=== PATIENT | male | born 1950 | race Caucasian/White ===

== ENCOUNTER → 2016-07-09 | Outpatient (CLI) | payer OTHER ==
[~2016-07-09] MED LIST: ABIR250T PO; AMIO200T PO; AMLO10TA2 PO; AMLO5TAB2 PO; APIX5TAB PO; ATOR20TA9 PO; ATOR40TA78 PO; BUSP10TA PO; DARB100V SQ; DRON400T PO; ENOX60SY4 SQ; FERR325T20 PO; LEUP22.52 IM; LOSA1TAB18 PO; METO-93 PO; METO25TA35 PO; OMEP-110 PO; OMEP20CA9 PO; OMNIPAQUE 350 MG/ML, 100ML BOTTLE ONE; OXYC5TAB3 PO; PARO40TA3 PO; POLY17PO5 PO; POTA10TA90 PO; PRED10TA PO; WARF5TAB7 PO
== END | disposition home or self-care (01) ==
LOC: CFH 09:20
PROVIDERS: ATTEND Internal Medicine Hematology & Oncology
DX: C61 Malignant neoplasm of prostate (principal); K76.6 Portal hypertension; K80.20 Calculus of gallbladder without cholecystitis without obstruction; D50.9 Iron deficiency anemia, unspecified; M89.8X8 Other specified disorders of bone, other site
CPT/HCPCS: 71260; 74177; 82565; Q9967

== ENCOUNTER 2017-03-29 03:54 | Emergency (ER) | payer MEDICARE ==
[~2017-03-29] VITALS: Ht 177.8 cm; Wt 94.0 kg
[~2017-03-29 03:54] MED LIST changes: +FERR325T18 PO; -FERR325T20 PO; -LOSA1TAB18 PO; +LOSA1TAB25 PO; -OMNIPAQUE 350 MG/ML, 100ML BOTTLE ONE; +POTA10TA6 PO; -POTA10TA90 PO
[2017-03-29 04:07] VITALS: BP 172/97
[2017-03-29] MEDS ORDERED: ACETAMINOPHEN 500 MG TABLET PO ONE (05:00)
[2017-03-29 05:27] LABS: HEMATOCRIT 36.7 % (39.2-51.8); HEMOGLOBIN 12.8 g/dL (13.7-18.0); WHITE BLOOD COUNT 6.5 x10^3/uL (3.4-10)
[2017-03-29 05:28] LABS: BLOOD UREA NITROGEN 29 mg/dL (7-18)
[2017-03-29] MEDS ORDERED: ACETAMINOPHEN 500 MG TABLET ONE (05:41)
== END 2017-03-29 06:17 | disposition home or self-care (01) ==
LOC: ED 04:19
DX: S39.012A Strain of muscle, fascia and tendon of lower back, initial encounter (principal); I10 Essential (primary) hypertension; Z85.46 Personal history of malignant neoplasm of prostate; X58.XXXA Exposure to other specified factors, initial encounter; Y93.89 Activity, other specified; Y92.89 Other specified places as the place of occurrence of the external cause; Y99.9 Unspecified external cause status
CPT/HCPCS: 36415; 72110; 80048; 81003; 82040; 85025; 99285

== ENCOUNTER 2017-08-18 11:05 | Inpatient (IN) | payer MEDICARE ==
[~2017-08-18] VITALS: Ht 152.4 cm; Wt 96.0 kg
[~2017-08-18 11:05] MED LIST changes: +WARF-36 PO; -WARF5TAB7 PO
[2017-08-18] MEDS ORDERED: CHLO25TA PO (11:59)
[2017-08-18] MEDS ORDERED: MULT1CAP19 PO (11:59)
[2017-08-18] MEDS ORDERED: AMLO5TAB2 PO (11:59)
[2017-08-18] MEDS ORDERED: ATOR40TA PO (11:59)
[2017-08-18] MEDS ORDERED: APIX5TAB PO (11:59)
[2017-08-18] MEDS ORDERED: SUVO20TA PO (11:59)
[2017-08-18] MEDS ORDERED: OMEP-110 PO (11:59)
[2017-08-18] MEDS ORDERED: METO-95 PO (11:59)
[2017-08-18] MEDS ORDERED: LOSA100T6 PO (11:59)
[2017-08-18 12:40] LABS: BASOPHILS # (AUTO) 0.08 x10^3/uL (0-0.1); BASOPHILS % (AUTO) 1 % (0-1); EOSINOPHILS # (AUTO) 0.26 x10^3/uL (0-0.4); EOSINOPHILS % (AUTO) 4 % (1-7); LYMPHOCYTES # (AUTO) 0.82 x10^3/uL (1-3.4); LYMPHOCYTES % (AUTO) 11 % (22-44); MD NO; MEAN CORPUSCULAR HEMOGLOBIN 26.3 pg (27.5-34.5); MEAN CORPUSCULAR HGB CONC 32.7 g/dL (33.2-36.2); MEAN CORPUSCULAR VOLUME 80.4 fL (81-97); MEAN PLATELET VOLUME 8.6 fL (7.4-10.4); MONOCYTES % (AUTO) 7 % (2-9); NEUTROPHILS # (AUTO) 5.76 x10^3/uL (1.8-6.8); NEUTROPHILS % (AUTO) 78 % (42-75); PLATELET COUNT 222 x10^3/uL (130-400); RED BLOOD COUNT 3.88 x10^6/uL (4.38-5.82); RED CELL DISTRIBUTION WIDTH 18.6 % (9.4-14.8)
[2017-08-18 13:09] LABS: ALANINE AMINOTRANSFERASE 20 U/L (12-78); ALBUMIN 3.9 g/dL (3.4-5.0); ANION GAP 11 mmol/L (5-15); CALCIUM 9.5 mg/dL (8.5-10.1); CHLORIDE 103 mmol/L (98-107)
[2017-08-18 13:14] LABS: ALKALINE PHOSPHATASE 130 U/L (45-117); BILIRUBIN,TOTAL 0.5 mg/dL (0.2-1.0); CREATININE 1.19 mg/dL (0.7-1.3); TOTAL PROTEIN 8.1 g/dL (6.4-8.2); TROPONIN I < 0.015 ng/mL (0.000-0.045)
[2017-08-18] MEDS ORDERED: OXYcodone/APAP 10/325MG TABLET ONE (14:21)
[2017-08-18] MEDS ORDERED: OXYcodone/APAP 10/325MG TABLET PO ONE (14:30)
[2017-08-18] MEDS ORDERED: POLYETHYLENE GLYCOL 17 GM PACKET PO PRN (15:00)
[2017-08-18] MEDS ORDERED: LABETALOL 5MG/ML, 20ML IVPush PRN (15:00)
[2017-08-18] MEDS ORDERED: ONDANSETRON 2MG/ML, 2ML IVPush PRN (15:00)
[2017-08-18] MEDS ORDERED: ENOXAPARIN 40 MG/0.4 ML SQ SCH (15:00)
[2017-08-18] MEDS ORDERED: GADOBUTROL 10 MMOL/10 ML PFS ONE (15:49)
[2017-08-18 16:04] LABS: FREE T4 (FREE THYROXINE) 1.25 ng/dL (0.76-1.46)
[2017-08-18] MEDS ORDERED: ONDANSETRON 4 MG TABLET ONE (16:26)
[2017-08-18 16:28] VITALS: BP 139/89
[2017-08-18] MEDS: ONDANSETRON ODT 4 MG PO PRN ×2 (16:44→21:40)
[2017-08-18] MEDS: D5%-0.45% NACL 1,000 ML IV SCH (16:45)
[2017-08-18] MEDS ORDERED: ACETAMINOPHEN 325 MG TABLET PO PRN (17:30)
[2017-08-18 20:15] VITALS: BP 133/83
[2017-08-18] MEDS: APIXABAN 5 MG TABLET PO SCH (20:34)
[2017-08-18] MEDS: MORPHINE SULFATE 4 MG/ML, 1ML IVPush PRN (20:34)
[2017-08-18] MEDS: ATORVASTATIN 40 MG TABLET PO SCH (20:34)
[2017-08-18] MEDS: FAMOTIDINE 20 MG/2 ML IVPush SCH (20:34)
[2017-08-19] MEDS: MORPHINE SULFATE 4 MG/ML, 1ML IVPush PRN ×2 (01:09→07:45)
[2017-08-19] MEDS: D5%-0.45% NACL 1,000 ML IV SCH ×3 (02:11→21:23)
[2017-08-19] MEDS: ONDANSETRON ODT 4 MG PO PRN ×3 (02:11→11:56)
[2017-08-19 02:30] VITALS: BP 106/65
[2017-08-19 04:32] LABS: BASOPHILS # (AUTO) 0.02 x10^3/uL (0-0.1); BASOPHILS % (AUTO) 0 % (0-1); EOSINOPHILS # (AUTO) 0.19 x10^3/uL (0-0.4); EOSINOPHILS % (AUTO) 2 % (1-7); LYMPHOCYTES # (AUTO) 0.37 x10^3/uL (1-3.4); LYMPHOCYTES % (AUTO) 5 % (22-44); MD NO; MEAN CORPUSCULAR HEMOGLOBIN 26.3 pg (27.5-34.5); MEAN CORPUSCULAR HGB CONC 32.4 g/dL (33.2-36.2); MEAN CORPUSCULAR VOLUME 81.2 fL (81-97); MEAN PLATELET VOLUME 9.1 fL (7.4-10.4); MONOCYTES # (AUTO) 0.67 x10^3/uL (0.2-0.8); MONOCYTES % (AUTO) 8 % (2-9); NEUTROPHILS # (AUTO) 6.99 x10^3/uL (1.8-6.8); NEUTROPHILS % (AUTO) 85 % (42-75); PLATELET COUNT 189 x10^3/uL (130-400); RED BLOOD COUNT 3.46 x10^6/uL (4.38-5.82)
[2017-08-19 04:44] LABS: ALANINE AMINOTRANSFERASE 18 U/L (12-78); ALBUMIN 3.3 g/dL (3.4-5.0); ANION GAP 9 mmol/L (5-15); CALCIUM 8.9 mg/dL (8.5-10.1); CHLORIDE 102 mmol/L (98-107); CREATININE 1.05 mg/dL (0.7-1.3)
[2017-08-19 04:54] LABS: ALKALINE PHOSPHATASE 114 U/L (45-117); BILIRUBIN,TOTAL 0.4 mg/dL (0.2-1.0); TOTAL PROTEIN 6.9 g/dL (6.4-8.2)
[2017-08-19] MEDS: FAMOTIDINE 20 MG/2 ML IVPush SCH (07:44)
[2017-08-19 08:14] VITALS: BP 114/73
[2017-08-19] MEDS: SUVOREXANT PO SCH (09:17)
[2017-08-19] MEDS: AMLODIPINE 5 MG TABLET PO SCH (09:17)
[2017-08-19] MEDS: PROMETHAZINE 25 MG/ML, 1ML IM PRN ×2 (09:17→16:59)
[2017-08-19] MEDS: LOSARTAN 50MG TABLET PO SCH (09:17)
[2017-08-19] MEDS: METOPROLOL SUCCINATE 100 MG TAB.ER.24H PO SCH (09:18)
[2017-08-19] MEDS: OMEPRAZOLE 20 MG CAPSULE.DR PO SCH (09:18)
[2017-08-19] MEDS: MULTIVITAMIN 1 TABLET PO SCH (10:39)
[2017-08-19] MEDS: APIXABAN 5 MG TABLET PO SCH ×2 (10:39→19:37)
[2017-08-19] MEDS: SENNA/DOCUSATE TABLET PO SCH (10:39)
[2017-08-19] MEDS: HYDROmorphone 2 MG/ML, 1ML IVPush PRN ×2 (13:36→19:37)
[2017-08-19 14:24] VITALS: BP 130/88
[2017-08-19 18:38] VITALS: BP 128/82
[2017-08-19] MEDS: ATORVASTATIN 40 MG TABLET PO SCH (21:00)
[2017-08-20] MEDS: HYDROmorphone 2 MG/ML, 1ML IVPush PRN ×6 (00:02→22:17)
[2017-08-20 02:36] VITALS: BP 145/79
[2017-08-20 04:37] LABS: BASOPHILS # (AUTO) 0.02 x10^3/uL (0-0.1); BASOPHILS % (AUTO) 0 % (0-1); EOSINOPHILS # (AUTO) 0.19 x10^3/uL (0-0.4); EOSINOPHILS % (AUTO) 3 % (1-7); LYMPHOCYTES # (AUTO) 0.71 x10^3/uL (1-3.4); LYMPHOCYTES % (AUTO) 10 % (22-44); MD NO; MEAN CORPUSCULAR HEMOGLOBIN 26.9 pg (27.5-34.5); MEAN CORPUSCULAR HGB CONC 33.2 g/dL (33.2-36.2); MEAN PLATELET VOLUME 9.2 fL (7.4-10.4); MONOCYTES # (AUTO) 0.56 x10^3/uL (0.2-0.8); MONOCYTES % (AUTO) 8 % (2-9); NEUTROPHILS # (AUTO) 5.41 x10^3/uL (1.8-6.8); NEUTROPHILS % (AUTO) 79 % (42-75); PLATELET COUNT 178 x10^3/uL (130-400); RED BLOOD COUNT 3.39 x10^6/uL (4.38-5.82); RED CELL DISTRIBUTION WIDTH 18.9 % (9.4-14.8)
[2017-08-20 04:46] LABS: ALBUMIN 3.1 g/dL (3.4-5.0); ANION GAP 10 mmol/L (5-15); CHLORIDE 96 mmol/L (98-107); CREATININE 0.92 mg/dL (0.7-1.3)
[2017-08-20] MEDS: D5%-0.45% NACL 1,000 ML IV SCH ×2 (06:35→16:03)
[2017-08-20 07:27] VITALS: BP 151/76
[2017-08-20] MEDS: PROMETHAZINE 25 MG/ML, 1ML IM PRN (07:45)
[2017-08-20] MEDS: SUVOREXANT PO SCH (07:46)
[2017-08-20] MEDS: APIXABAN 5 MG TABLET PO SCH ×2 (07:46→20:17)
[2017-08-20] MEDS: OMEPRAZOLE 20 MG CAPSULE.DR PO SCH (07:46)
[2017-08-20] MEDS: AMLODIPINE 5 MG TABLET PO SCH (07:46)
[2017-08-20] MEDS: LOSARTAN 50MG TABLET PO SCH (07:46)
[2017-08-20] MEDS: MULTIVITAMIN 1 TABLET PO SCH (07:46)
[2017-08-20] MEDS: METOPROLOL SUCCINATE 100 MG TAB.ER.24H PO SCH (07:46)
[2017-08-20] MEDS: SENNA/DOCUSATE TABLET PO SCH (07:47)
[2017-08-20 13:17] VITALS: BP 128/77
[2017-08-20 18:39] VITALS: BP 122/79
[2017-08-20] MEDS: ATORVASTATIN 40 MG TABLET PO SCH (20:17)
[2017-08-21 00:33] VITALS: BP 154/89
[2017-08-21] MEDS: HYDROmorphone 2 MG/ML, 1ML IVPush PRN ×3 (02:20→10:24)
[2017-08-21] MEDS: D5%-0.45% NACL 1,000 ML IV SCH ×2 (02:20→12:27)
[2017-08-21 05:47] LABS: BASOPHILS # (AUTO) 0.02 x10^3/uL (0-0.1); BASOPHILS % (AUTO) 0 % (0-1); EOSINOPHILS # (AUTO) 0.18 x10^3/uL (0-0.4); EOSINOPHILS % (AUTO) 2 % (1-7); LYMPHOCYTES # (AUTO) 0.71 x10^3/uL (1-3.4); LYMPHOCYTES % (AUTO) 8 % (22-44); MD NO; MEAN CORPUSCULAR HEMOGLOBIN 26.5 pg (27.5-34.5); MEAN CORPUSCULAR HGB CONC 33.3 g/dL (33.2-36.2); MEAN CORPUSCULAR VOLUME 79.6 fL (81-97); MEAN PLATELET VOLUME 9.6 fL (7.4-10.4); MONOCYTES # (AUTO) 0.69 x10^3/uL (0.2-0.8); MONOCYTES % (AUTO) 8 % (2-9); NEUTROPHILS # (AUTO) 6.82 x10^3/uL (1.8-6.8); NEUTROPHILS % (AUTO) 81 % (42-75); PLATELET COUNT 158 x10^3/uL (130-400); RED BLOOD COUNT 3.39 x10^6/uL (4.38-5.82); RED CELL DISTRIBUTION WIDTH 18.9 % (9.4-14.8)
[2017-08-21 05:49] LABS: ALBUMIN 2.9 g/dL (3.4-5.0); ANION GAP 11 mmol/L (5-15); CALCIUM 8.8 mg/dL (8.5-10.1); CHLORIDE 94 mmol/L (98-107)
[2017-08-21 08:02] VITALS: BP 157/94
[2017-08-21] MEDS: LOSARTAN 50MG TABLET PO SCH (08:53)
[2017-08-21] MEDS: MULTIVITAMIN 1 TABLET PO SCH (08:53)
[2017-08-21] MEDS: SENNA/DOCUSATE TABLET PO SCH (08:53)
[2017-08-21] MEDS: APIXABAN 5 MG TABLET PO SCH (08:53)
[2017-08-21] MEDS: METOPROLOL SUCCINATE 100 MG TAB.ER.24H PO SCH (08:53)
[2017-08-21] MEDS: OMEPRAZOLE 20 MG CAPSULE.DR PO SCH (08:54)
[2017-08-21] MEDS: AMLODIPINE 5 MG TABLET PO SCH (08:54)
[2017-08-21] MEDS: SUVOREXANT PO SCH (08:54)
[2017-08-21 12:36] VITALS: BP 149/88
[2017-08-21] MEDS ORDERED: HYDROmorphone 2MG TABLET PO PRN (13:30)
[2017-08-21] MEDS ORDERED: FENTANYL 25 MCG PATCH TD SCH (13:30)
[2017-08-21] MEDS ORDERED: DEXAMETHASONE 4 MG TABLET PO SCH ×2 (17:00→21:00)
[2017-08-21] MEDS ORDERED: DEXA4TAB66 PO (17:56)
[2017-08-21] MEDS ORDERED: HYDR2TAB40 PO (17:56)
[2017-08-21] MEDS ORDERED: TRAM50TA2 PO (17:56)
[2017-08-24] MEDS ORDERED: FENTANYL REMOVE PATCH NOTE XX SCH (13:30)
== END 2017-08-21 19:20 | disposition home or self-care (01) | DRG 543 ==
LOC: 3NW 14:10 → ED 16:26
PROVIDERS: ADMIT Hospitalist; ATTEND Hospitalist
DX: C79.51 Secondary malignant neoplasm of bone (principal); D68.69 Other thrombophilia; I48.2 Chronic atrial fibrillation; R29.810 Facial weakness; I10 Essential (primary) hypertension; D50.9 Iron deficiency anemia, unspecified; R47.1 Dysarthria and anarthria; K59.00 Constipation, unspecified; R73.9 Hyperglycemia, unspecified; R74.8 Abnormal levels of other serum enzymes; K14.8 Other diseases of tongue; E78.5 Hyperlipidemia, unspecified; F32.9 Major depressive disorder, single episode, unspecified; Z82.49 Family history of ischemic heart disease and other diseases of the circulatory system; Z90.79 Acquired absence of other genital organ(s); Z92.3 Personal history of irradiation; Z80.0 Family history of malignant neoplasm of digestive organs; Z85.46 Personal history of malignant neoplasm of prostate; Z79.01 Long term (current) use of anticoagulants; Z90.89 Acquired absence of other organs
CPT/HCPCS: 36415; 70450; 70551; 70552; 71045; 72156; 74018; 78306; 80048; 80053; 82040; 82728; 83540; 83550; 83735; 83880; 84100; 84439; 84443; 84484; 85025; 93005; 99285; A9585; G0103; J1170; J2550; Q0162; A9503; C9898; S0028

== ENCOUNTER → 2017-08-22 | Outpatient (CLI) | payer MEDICARE ==
[~2017-08-22] MED LIST changes: +ATOR40TA PO; +CHLO25TA PO; +DEXA4TAB66 PO; +HYDR2TAB40 PO; +LOSA100T6 PO; +METO-95 PO; +MULT1CAP19 PO; +SUVO20TA PO; +TRAM50TA2 PO
== END | disposition home or self-care (01) ==
LOC: ROC 10:02
PROVIDERS: ATTEND Radiology Radiation Oncology
DX: Z02.9 Encounter for administrative examinations, unspecified (principal)

== ENCOUNTER 2017-09-12 03:52 | Inpatient (IN) | payer MEDICARE ==
[~2017-09-12] VITALS: Ht 177.8 cm; Wt 86.3 kg
[2017-09-12] MEDS ORDERED: HYDROmorphone 2 MG/ML, 1ML IVPush PRN ×2 (04:30→08:00)
[2017-09-12] MEDS ORDERED: SODIUM CHLORIDE FLUSH 10ML SYR IVF ONE (04:30)
[2017-09-12] MEDS ORDERED: SODIUM CHLORIDE 0.9% 1,000ML IVBOLUS ONE ×3 (04:30→16:30)
[2017-09-12] MEDS ORDERED: HYDROmorphone 2 MG/ML, 1ML ONE (04:50)
[2017-09-12 05:22] LABS: MEAN CORPUSCULAR HEMOGLOBIN 26.4 pg (27.5-34.5); MEAN CORPUSCULAR HGB CONC 32.4 g/dL (33.2-36.2); MEAN CORPUSCULAR VOLUME 81.7 fL (81-97); MEAN PLATELET VOLUME 11.5 fL (7.4-10.4); PLATELET COUNT 118 x10^3/uL (130-400); RED BLOOD COUNT 4.84 x10^6/uL (4.38-5.82); RED CELL DISTRIBUTION WIDTH 20.4 % (9.4-14.8)
[2017-09-12 05:35] LABS: CHLORIDE 92 mmol/L (98-107)
[2017-09-12 05:42] LABS: ALANINE AMINOTRANSFERASE 20 U/L (12-78); ALKALINE PHOSPHATASE 133 U/L (45-117); ANION GAP 17 mmol/L (5-15); BILIRUBIN,TOTAL 1.1 mg/dL (0.2-1.0); CALCIUM 8.5 mg/dL (8.5-10.1); CREATININE 3.67 mg/dL (0.7-1.3); TOTAL PROTEIN 6.7 g/dL (6.4-8.2)
[2017-09-12 05:43] LABS: ACETONE, SERUM Large (80mg/dL) mg/dL (Negative)
[2017-09-12 06:00] LABS: BASOPHILS % (AUTO) 0 % (0-1); EOSINOPHILS % (AUTO) 0 % (1-7); LYMPHOCYTES # (AUTO) 0.08 x10^3/uL (1-3.4); LYMPHOCYTES % (AUTO) 1 % (22-44); MD SCAN; MONOCYTES % (AUTO) 1 % (2-9); NEUTROPHILS # (AUTO) 8.01 x10^3/uL (1.8-6.8); NEUTROPHILS % (AUTO) 98 % (42-75)
[2017-09-12] MEDS ORDERED: INSULIN REGULAR 100 UNITS/ML, 3ML VIAL IVPush ONE (06:00)
[2017-09-12] MEDS ORDERED: SODIUM CHLORIDE 0.9%, 500ML IVBOLUS ONE ×2 (06:00→08:00)
[2017-09-12] MEDS ORDERED: INSULIN REGULAR 100 UNITS/ML, 3ML VIAL ONE ×2 (06:02→06:03)
[2017-09-12] MEDS ORDERED: CALCIUM CHLORIDE 10%, 10ML SYR IVPush ONE (06:30)
[2017-09-12] MEDS ORDERED: SODIUM POLY SULFONATE UDC 15 GM/60 ML PO ONE (06:30)
[2017-09-12] MEDS ORDERED: CALCIUM CHLORIDE 10%, 10ML SYR ONE (07:02)
[2017-09-12] MEDS ORDERED: CALCIUM GLUCONATE 4.6 MEQ/10 ML ONE (07:02)
[2017-09-12] MEDS ORDERED: REGULAR INSULIN 62.5 UNITS in SODIUM CHLORIDE 0.9% 249.375 ML IV PRN (07:32)
[2017-09-12 07:48] LABS: MICROSCOPIC NOT IND
[2017-09-12] MEDS ORDERED: POLYETHYLENE GLYCOL 17 GM PACKET PO PRN (08:00)
[2017-09-12] MEDS ORDERED: LORazepam 2 MG/ML, 1ML IVPush PRN (08:00)
[2017-09-12] MEDS: SODIUM CHLORIDE 0.9% 1,000 ML IV SCH ×3 (08:15→20:58)
[2017-09-12 08:29] LABS: CULTURE INDICATED? NO
[2017-09-12] MEDS ORDERED: INSULIN LISPRO 100 UNITS/ML, PEN ONE (08:49)
[2017-09-12 08:53] LABS: THYROID STIMULATING HORMONE 0.185 mIU/L (0.358-3.740)
[2017-09-12] MEDS: SENNA/DOCUSATE TABLET PO SCH (09:00)
[2017-09-12] MEDS: INSULIN LISPRO 100 UNITS/ML, PEN SQ-INSULIN SCH ×4 (09:01→21:09)
[2017-09-12 10:05] LABS: HEMOGLOBIN A1C 11.5 % (4.2-6.3)
[2017-09-12] MEDS ORDERED: LIDOCAINE-MPF 1%, 2ML ONE (10:45)
[2017-09-12] MEDS ORDERED: LIDOCAINE GEL 2%, 5ML TP PRN (11:00)
[2017-09-12] MEDS: DEXAMETHASONE 4 MG/ML, 1ML IVPush SCH ×3 (11:27→23:19)
[2017-09-12] MEDS: INSULIN GLARGINE 100 UNITS/ML, PEN SQ-INSULIN SCH ×2 (11:27→21:10)
[2017-09-12 11:59] LABS: INTERNATIONAL NORMALIZED RATIO 1.09 (0.93-1.1); PROTHROMBIN TIME 11.2 Seconds (9.6-11.5)
[2017-09-12 12:02] LABS: ANION GAP 13 mmol/L (5-15); CALCIUM 8.6 mg/dL (8.5-10.1); CHLORIDE 107 mmol/L (98-107); CREATININE 3.22 mg/dL (0.7-1.3)
[2017-09-12 12:15] LABS: FREE T4 (FREE THYROXINE) 0.84 ng/dL (0.76-1.46)
[2017-09-12 12:21] VITALS: BP 101/56
[2017-09-12] MEDS ORDERED: DIAZEPAM 5 MG/ML, 10ML VIAL IV ONE (13:40)
[2017-09-12] MEDS ORDERED: DIAZEPAM 5 MG/ML, 2ML IV ONE (14:00)
[2017-09-12] MEDS ORDERED: LIDOCAINE 2%, 20ML ONE (14:12)
[2017-09-12] MEDS ORDERED: PROPOFOL 10 MG/ML, 100ML IV ONE (15:00)
[2017-09-12] MEDS ORDERED: ROCURONIUM 10MG/ML,5ML ONE (15:00)
[2017-09-12] MEDS ORDERED: MIDAZOLAM 1 MG/ML, 5ML ONE (15:00)
[2017-09-12] MEDS ORDERED: NOREPINEPHRINE 1 MG/ML, 4ML ONE (15:25)
[2017-09-12] MEDS ORDERED: PHARMACY MAY ADJ FOR RENAL FX MC SCH (15:30)
[2017-09-12] MEDS ORDERED: DEXTROSE 50%, 50ML SYRINGE IVPush PRN (15:30)
[2017-09-12] MEDS ORDERED: SENNA/DOCUSATE TABLET NG PRN (15:30)
[2017-09-12] MEDS ORDERED: GLUCAGON 1 MG IM PRN (15:30)
[2017-09-12] MEDS ORDERED: DEXTROSE 4 GM TAB.CHEW PO PRN (15:30)
[2017-09-12] MEDS ORDERED: FENTANYL PF 100 MCG/2ML IVPush PRN (15:30)
[2017-09-12] MEDS ORDERED: SENNOSIDES 8.8 MG/5 ML ORAL SOL NG PRN (15:30)
[2017-09-12] MEDS ORDERED: BISACODYL 10 MG SUPP PR PRN (15:30)
[2017-09-12] MEDS ORDERED: LIDOCAINE-MPF 1%, 2ML ENDO PRN (15:30)
[2017-09-12] MEDS ORDERED: LACTULOSE 20 GM/30 ML UDC NG PRN (15:30)
[2017-09-12] MEDS ORDERED: METOPROLOL 1 MG/ML, 5ML ONE (15:53)
[2017-09-12 16:11] LABS: ANION GAP 13 mmol/L (5-15); CALCIUM 9.5 mg/dL (8.5-10.1); CHLORIDE 112 mmol/L (98-107)
[2017-09-12] MEDS ORDERED: SODIUM CHLORIDE 0.9% 1,000 ML IV SCH (16:30)
[2017-09-12 16:34] LABS: CREATININE 3.13 mg/dL (0.7-1.3)
[2017-09-12 17:06] LABS: MICROSCOPIC AUTO
[2017-09-12 17:08] LABS: CULTURE INDICATED? NO
[2017-09-12] MEDS: NOREPINEPHRINE 4 MG in SODIUM CHLORIDE 0.9% 246 ML IV PRN ×2 (17:19→20:59)
[2017-09-12] MEDS: ALBUTEROL/IPRATROPIUM 2.5MG/0.5MG, 3 ML INLINE SCH ×2 (18:34→22:27)
[2017-09-12 20:39] LABS: ANION GAP 11 mmol/L (5-15); CALCIUM 9.1 mg/dL (8.5-10.1); CHLORIDE 116 mmol/L (98-107)
[2017-09-12] MEDS: PROPOFOL 100 ML IV PRN (21:01)
[2017-09-12] MEDS: SODIUM CHLORIDE FLUSH 10ML SYR IVF SCH (21:01)
[2017-09-12] MEDS: OXYcodone IR 5MG TABLET PO PRN (21:37)
[2017-09-13 00:43] LABS: ANION GAP 11 mmol/L (5-15); CALCIUM 8.9 mg/dL (8.5-10.1); CHLORIDE 119 mmol/L (98-107)
[2017-09-13] MEDS: NOREPINEPHRINE 4 MG in SODIUM CHLORIDE 0.9% 246 ML IV PRN ×2 (01:33→07:52)
[2017-09-13] MEDS: ALBUTEROL/IPRATROPIUM 2.5MG/0.5MG, 3 ML INLINE SCH ×3 (02:31→10:08)
[2017-09-13] MEDS: SODIUM CHLORIDE 0.9% 1,000 ML IV SCH ×3 (03:26→16:38)
[2017-09-13] MEDS: PROPOFOL 100 ML IV PRN ×2 (03:28→07:46)
[2017-09-13] MEDS: INSULIN LISPRO 100 UNITS/ML, PEN SQ-INSULIN SCH ×4 (03:29→21:14)
[2017-09-13 04:38] VITALS: BP 117/69
[2017-09-13 04:48] LABS: ALBUMIN 2.4 g/dL (3.4-5.0); ANION GAP 11 mmol/L (5-15); CALCIUM 8.7 mg/dL (8.5-10.1); CHLORIDE 119 mmol/L (98-107)
[2017-09-13 04:51] LABS: ALANINE AMINOTRANSFERASE 18 U/L (12-78); ALKALINE PHOSPHATASE 137 U/L (45-117); BILIRUBIN,TOTAL 0.7 mg/dL (0.2-1.0); CREATININE 2.04 mg/dL (0.7-1.3); MEAN CORPUSCULAR HEMOGLOBIN 26.6 pg (27.5-34.5); MEAN CORPUSCULAR VOLUME 80.8 fL (81-97); RED BLOOD COUNT 4.44 x10^6/uL (4.38-5.82); RED CELL DISTRIBUTION WIDTH 20.2 % (9.4-14.8); TOTAL PROTEIN 5.8 g/dL (6.4-8.2)
[2017-09-13] MEDS: DEXAMETHASONE 4 MG/ML, 1ML IVPush SCH ×4 (05:26→23:16)
[2017-09-13 06:54] LABS: MD YES
[2017-09-13 06:59] LABS: BAND#(MANUAL) 2.61 x10^3/uL; BANDS%(MANUAL) 45 % (0-7); LYMPH#(MANUAL) 0.06 x10^3/uL (1-3.4); LYMPHS% (MANUAL) 1 % (22-44); MONOS#(MANUAL) 0.23 x10^3/uL (0.3-2.7); MONOS% (MANUAL) 4 % (2-9); SEGS% (MANUAL) 50 % (42-75)
[2017-09-13 07:03] LABS: MEAN PLATELET VOLUME 11.4 fL (7.4-10.4); PLATELET COUNT 91 x10^3/uL (130-400)
[2017-09-13 07:04] LABS: <PLATELET ESTIMATE> DECREASED; <RBC MORPHOLOGY> NORMAL
[2017-09-13 07:05] LABS: <PLT MORPHOLOGY> NORMAL PLT MORPH
[2017-09-13] MEDS ORDERED: PANTOPROZOLE 40MG TABLET PO SCH (07:30)
[2017-09-13] MEDS: INSULIN GLARGINE 100 UNITS/ML, PEN SQ-INSULIN SCH (09:24)
[2017-09-13] MEDS: PANTOPRAZOLE 40 MG IV IV SCH (09:24)
[2017-09-13] MEDS: AMPICILLIN/SULBACTAM 3 GM in SODIUM CHLORIDE 0.9% 100 ML IV SCH ×3 (09:24→20:37)
[2017-09-13] MEDS: OXYcodone IR 5MG TABLET PO PRN ×2 (09:24→21:45)
[2017-09-13] MEDS: SENNA/DOCUSATE TABLET PO SCH (09:24)
[2017-09-13] MEDS: SODIUM CHLORIDE FLUSH 10ML SYR IVF SCH ×2 (09:25→20:40)
[2017-09-13 09:47] LABS: ANION GAP 13 mmol/L (5-15); CALCIUM 8.9 mg/dL (8.5-10.1); CHLORIDE 118 mmol/L (98-107); CREATININE 1.81 mg/dL (0.7-1.3)
[2017-09-13] MEDS ORDERED: DIGOXIN 0.25 MG/ML, 2ML IVPush ONE (15:30)
[2017-09-13] MEDS: ACETAMINOPHEN 325 MG TABLET PO PRN (16:37)
[2017-09-13] MEDS ORDERED: SODIUM CHLORIDE 0.9% 1,000 ML IV SCH (17:30)
[2017-09-13] MEDS: LINEZOLID PMX 600MG/300ML 300 ML IV SCH (18:18)
[2017-09-13] MEDS ORDERED: INSULIN GLARGINE 100 UNITS/ML, PEN SQ-INSULIN SCH (21:00)
[2017-09-14] MEDS: AMPICILLIN/SULBACTAM 3 GM in SODIUM CHLORIDE 0.9% 100 ML IV SCH ×2 (01:39→08:24)
[2017-09-14] MEDS: INSULIN LISPRO 100 UNITS/ML, PEN SQ-INSULIN SCH ×4 (03:04→20:01)
[2017-09-14] MEDS: LINEZOLID PMX 600MG/300ML 300 ML IV SCH (03:04)
[2017-09-14 04:00] VITALS: BP 120/60
[2017-09-14 05:22] LABS: ANION GAP 13 mmol/L (5-15); CALCIUM 8.6 mg/dL (8.5-10.1); CHLORIDE 118 mmol/L (98-107); CREATININE 1.61 mg/dL (0.7-1.3)
[2017-09-14 05:25] LABS: MEAN CORPUSCULAR HEMOGLOBIN 26.5 pg (27.5-34.5); MEAN CORPUSCULAR HGB CONC 32.9 g/dL (33.2-36.2); MEAN CORPUSCULAR VOLUME 80.3 fL (81-97); RED CELL DISTRIBUTION WIDTH 21.2 % (9.4-14.8)
[2017-09-14] MEDS: DEXAMETHASONE 4 MG/ML, 1ML IVPush SCH ×3 (05:47→17:16)
[2017-09-14 05:54] LABS: MD YES; MEAN PLATELET VOLUME 10.7 fL (7.4-10.4)
[2017-09-14 06:01] LABS: PLATELET COUNT 47 x10^3/uL (130-400)
[2017-09-14 06:07] LABS: BAND#(MANUAL) 1.33 x10^3/uL; BANDS%(MANUAL) 26 % (0-7); MONOS% (MANUAL) 2 % (2-9); SEG#(MANUAL) 3.67 x10^3/uL (1.8-6.8); SEGS% (MANUAL) 72 % (42-75)
[2017-09-14 06:08] LABS: <PLATELET ESTIMATE> DECREASED; <PLT MORPHOLOGY> NORMAL PLT MORPH; <RBC MORPHOLOGY> NORMAL; TOXIC GRAN 1+
[2017-09-14] MEDS ORDERED: POTASSIUM CHLORIDE 20 MEQ TAB.ER.PRT PO ONE (08:00)
[2017-09-14] MEDS: SODIUM CHLORIDE 0.45% 1,000 ML IV SCH (09:35)
[2017-09-14] MEDS: SENNA/DOCUSATE TABLET PO SCH (09:35)
[2017-09-14] MEDS: SODIUM CHLORIDE FLUSH 10ML SYR IVF SCH ×2 (09:35→20:01)
[2017-09-14] MEDS: PANTOPRAZOLE 40 MG IV IV SCH (09:35)
[2017-09-14] MEDS: INSULIN GLARGINE 100 UNITS/ML, PEN SQ-INSULIN SCH ×2 (09:47→20:00)
[2017-09-14] MEDS: CEFTRIAXONE PMX 2GM/50ML 50 ML IV SCH (12:46)
[2017-09-15] MEDS: SODIUM CHLORIDE 0.45% 1,000 ML IV SCH (00:28)
[2017-09-15] MEDS: DEXAMETHASONE 4 MG/ML, 1ML IVPush SCH ×2 (00:32→05:58)
[2017-09-15] MEDS: INSULIN LISPRO 100 UNITS/ML, PEN SQ-INSULIN SCH ×5 (00:32→21:01)
[2017-09-15 04:59] LABS: ANION GAP 8 mmol/L (5-15); CALCIUM 7.3 mg/dL (8.5-10.1); CHLORIDE 112 mmol/L (98-107); CREATININE 1.08 mg/dL (0.7-1.3)
[2017-09-15 05:06] VITALS: BP 129/54
[2017-09-15 05:09] LABS: MEAN CORPUSCULAR HEMOGLOBIN 26.2 pg (27.5-34.5); MEAN CORPUSCULAR HGB CONC 32.8 g/dL (33.2-36.2); MEAN CORPUSCULAR VOLUME 80.1 fL (81-97); MEAN PLATELET VOLUME 12.9 fL (7.4-10.4); RED BLOOD COUNT 3.46 x10^6/uL (4.38-5.82); RED CELL DISTRIBUTION WIDTH 20.6 % (9.4-14.8)
[2017-09-15 05:15] LABS: PLATELET COUNT 42 x10^3/uL (130-400)
[2017-09-15 05:51] LABS: MD YES
[2017-09-15 05:53] LABS: <PLATELET ESTIMATE> DECREASED; <PLT MORPHOLOGY> NORMAL PLT MORPH; <RBC MORPHOLOGY> NORMAL; BAND#(MANUAL) 0.22 x10^3/uL; BANDS%(MANUAL) 4 % (0-7); LYMPH#(MANUAL) 0.22 x10^3/uL (1-3.4); LYMPHS% (MANUAL) 4 % (22-44); MONOS#(MANUAL) 0.22 x10^3/uL (0.3-2.7); MONOS% (MANUAL) 4 % (2-9); SEG#(MANUAL) 4.75 x10^3/uL (1.8-6.8); SEGS% (MANUAL) 88 % (42-75)
[2017-09-15] MEDS: SENNA/DOCUSATE TABLET PO SCH (09:00)
[2017-09-15] MEDS: PANTOPRAZOLE 40 MG IV IV SCH (09:28)
[2017-09-15] MEDS: INSULIN GLARGINE 100 UNITS/ML, PEN SQ-INSULIN SCH ×2 (09:30→21:01)
[2017-09-15] MEDS: SODIUM CHLORIDE FLUSH 10ML SYR IVF SCH ×2 (09:31→21:04)
[2017-09-15] MEDS: DOXYCYCLINE 100 MG in DEXTROSE 5% 250 ML IV SCH ×2 (10:50→21:04)
[2017-09-15] MEDS: CEFTRIAXONE PMX 2GM/50ML 50 ML IV SCH (14:13)
[2017-09-15 19:34] VITALS: BP 146/75
[2017-09-15] MEDS: OXYcodone IR 5MG TABLET PO PRN (21:09)
[2017-09-16 04:18] VITALS: BP 122/79
[2017-09-16 05:51] LABS: MEAN CORPUSCULAR HEMOGLOBIN 26.8 pg (27.5-34.5); MEAN CORPUSCULAR HGB CONC 32.7 g/dL (33.2-36.2); RED CELL DISTRIBUTION WIDTH 20.8 % (9.4-14.8)
[2017-09-16 05:57] LABS: CHLORIDE 112 mmol/L (98-107)
[2017-09-16 06:11] LABS: ALANINE AMINOTRANSFERASE 22 U/L (12-78); ALBUMIN 2.1 g/dL (3.4-5.0); ALKALINE PHOSPHATASE 134 U/L (45-117); ANION GAP 9 mmol/L (5-15); BILIRUBIN,TOTAL 0.7 mg/dL (0.2-1.0); CALCIUM 9.2 mg/dL (8.5-10.1); CREATININE 1.24 mg/dL (0.7-1.3); TOTAL PROTEIN 5.8 g/dL (6.4-8.2)
[2017-09-16 06:43] LABS: PLATELET COUNT 38 x10^3/uL (130-400)
[2017-09-16 06:46] LABS: MD YES; MEAN PLATELET VOLUME 10.1 fL (7.4-10.4)
[2017-09-16 06:52] LABS: BAND#(MANUAL) 0.74 x10^3/uL; BANDS%(MANUAL) 10 % (0-7); LYMPH#(MANUAL) 0.44 x10^3/uL (1-3.4); LYMPHS% (MANUAL) 6 % (22-44); METAMYELOCYTES# (MANUAL) 0.07 x10^3/uL (0-0); METAMYELOCYTES% (MANUAL) 1 % (0-1); SEG#(MANUAL) 6.14 x10^3/uL (1.8-6.8); SEGS% (MANUAL) 83 % (42-75)
[2017-09-16 06:53] LABS: <PLATELET ESTIMATE> DECREASED; <PLT MORPHOLOGY> NORMAL PLT MORPH
[2017-09-16 06:55] LABS: <RBC MORPHOLOGY> NORMAL
[2017-09-16 07:59] VITALS: BP 125/85
[2017-09-16] MEDS: SENNA/DOCUSATE TABLET PO SCH (08:55)
[2017-09-16] MEDS: PANTOPRAZOLE 40 MG IV IV SCH (08:56)
[2017-09-16] MEDS: INSULIN GLARGINE 100 UNITS/ML, PEN SQ-INSULIN SCH ×2 (09:01→21:47)
[2017-09-16] MEDS: INSULIN LISPRO 100 UNITS/ML, PEN SQ-INSULIN SCH ×4 (09:02→21:46)
[2017-09-16] MEDS: SODIUM CHLORIDE FLUSH 10ML SYR IVF SCH ×2 (09:02→21:46)
[2017-09-16] MEDS ORDERED: MAGNESIUM SULFATE PMX 2GM/50ML 50 ML IV ONE (10:30)
[2017-09-16] MEDS ORDERED: INSULIN GLARGINE 100 UNITS/ML, PEN SQ-INSULIN ONE (10:30)
[2017-09-16] MEDS ORDERED: POTASSIUM PHOSPHATE 22 MEQ in SODIUM CHLORIDE 0.9% 500 ML IV ONE (10:30)
[2017-09-16] MEDS: DOXYCYCLINE 100 MG in DEXTROSE 5% 250 ML IV SCH ×2 (10:32→21:46)
[2017-09-16] MEDS: CEFTRIAXONE PMX 2GM/50ML 50 ML IV SCH (12:41)
[2017-09-16 13:25] VITALS: BP 127/78
[2017-09-16] MEDS: METOPROLOL TARTRATE 50 MG TABLET PO SCH ×2 (13:25→18:08)
[2017-09-16 15:24] LABS: PROTHROMBIN TIME 10.3 Seconds (9.6-11.5)
[2017-09-16] MEDS ORDERED: GADOBUTROL 10 MMOL/10 ML PFS ONE (15:29)
[2017-09-16 19:07] VITALS: BP 110/74
[2017-09-17] MEDS: METOPROLOL TARTRATE 50 MG TABLET PO SCH ×4 (01:52→21:49)
[2017-09-17 03:55] VITALS: BP 114/68
[2017-09-17 05:00] LABS: ALANINE AMINOTRANSFERASE 19 U/L (12-78); ALBUMIN 1.8 g/dL (3.4-5.0); ANION GAP 7 mmol/L (5-15); CALCIUM 8.6 mg/dL (8.5-10.1); CHLORIDE 108 mmol/L (98-107); CREATININE 1.07 mg/dL (0.7-1.3)
[2017-09-17 05:02] LABS: ALKALINE PHOSPHATASE 116 U/L (45-117); BILIRUBIN,TOTAL 0.6 mg/dL (0.2-1.0); TOTAL PROTEIN 5.6 g/dL (6.4-8.2)
[2017-09-17 05:10] LABS: MEAN CORPUSCULAR HEMOGLOBIN 26.9 pg (27.5-34.5); MEAN CORPUSCULAR HGB CONC 33.4 g/dL (33.2-36.2); MEAN CORPUSCULAR VOLUME 80.6 fL (81-97); RED BLOOD COUNT 4.11 x10^6/uL (4.38-5.82); RED CELL DISTRIBUTION WIDTH 20.8 % (9.4-14.8)
[2017-09-17 05:43] LABS: MEAN PLATELET VOLUME 11.2 fL (7.4-10.4)
[2017-09-17 05:45] LABS: MD YES; PLATELET COUNT 41 x10^3/uL (130-400)
[2017-09-17 05:47] LABS: BANDS%(MANUAL) 3 % (0-7); EOS#(MANUAL) 0.07 x10^3/uL (0.0-0.4); EOS% (MANUAL) 1 % (1-7); LYMPHS% (MANUAL) 3 % (22-44); MONOS#(MANUAL) 0.14 x10^3/uL (0.3-2.7); MONOS% (MANUAL) 2 % (2-9); SEG#(MANUAL) 6.19 x10^3/uL (1.8-6.8); SEGS% (MANUAL) 91 % (42-75)
[2017-09-17 05:48] LABS: TOXIC GRAN 1+
[2017-09-17 05:49] LABS: <PLATELET ESTIMATE> DECREASED; ANISOCYTOSIS 1+; GIANT PLATELETS 1+
[2017-09-17 06:38] LABS: ABSOLUTE RETICS # 0.026 x10^6/uL (0.5-1.5); RETICULOCYTE COUNT % 0.63 % (0.5-1.5)
[2017-09-17 06:40] VITALS: BP 124/76
[2017-09-17] MEDS: PANTOPRAZOLE 40 MG IV IV SCH (08:15)
[2017-09-17] MEDS: SENNA/DOCUSATE TABLET PO SCH (08:21)
[2017-09-17] MEDS: SODIUM CHLORIDE FLUSH 10ML SYR IVF SCH ×2 (08:21→21:50)
[2017-09-17] MEDS: INSULIN GLARGINE 100 UNITS/ML, PEN SQ-INSULIN SCH (08:33)
[2017-09-17] MEDS: DOXYCYCLINE 100 MG in DEXTROSE 5% 250 ML IV SCH ×2 (09:22→21:50)
[2017-09-17] MEDS: INSULIN LISPRO 100 UNITS/ML, PEN SQ-INSULIN SCH ×4 (09:23→21:52)
[2017-09-17] MEDS: CEFTRIAXONE PMX 2GM/50ML 50 ML IV SCH (12:32)
[2017-09-17 14:10] VITALS: BP 121/81
[2017-09-17 18:59] VITALS: BP 118/74
[2017-09-17 21:55] VITALS: BP 105/67
[2017-09-18 01:08] VITALS: BP 103/67
[2017-09-18 03:25] VITALS: BP 116/75
[2017-09-18] MEDS: METOPROLOL TARTRATE 50 MG TABLET PO SCH ×4 (03:48→21:00)
[2017-09-18 04:35] LABS: MEAN CORPUSCULAR HEMOGLOBIN 26.8 pg (27.5-34.5); MEAN CORPUSCULAR HGB CONC 33.3 g/dL (33.2-36.2); MEAN CORPUSCULAR VOLUME 80.4 fL (81-97); MEAN PLATELET VOLUME 11.2 fL (7.4-10.4); RED BLOOD COUNT 3.75 x10^6/uL (4.38-5.82); RED CELL DISTRIBUTION WIDTH 20.5 % (9.4-14.8)
[2017-09-18 04:37] LABS: ANION GAP 8 mmol/L (5-15); CALCIUM 7.9 mg/dL (8.5-10.1); CHLORIDE 101 mmol/L (98-107); CREATININE 0.98 mg/dL (0.7-1.3); TRIGLYCERIDES 133 mg/dL (50-200)
[2017-09-18 04:43] LABS: PLATELET COUNT 27 x10^3/uL (130-400)
[2017-09-18 05:00] LABS: MD YES
[2017-09-18 05:02] LABS: BAND#(MANUAL) 0.19 x10^3/uL; BANDS%(MANUAL) 3 % (0-7); EOS#(MANUAL) 0.13 x10^3/uL (0.0-0.4); EOS% (MANUAL) 2 % (1-7); LYMPH#(MANUAL) 0.25 x10^3/uL (1-3.4); LYMPHS% (MANUAL) 4 % (22-44); SEG#(MANUAL) 5.73 x10^3/uL (1.8-6.8); SEGS% (MANUAL) 91 % (42-75)
[2017-09-18 05:03] LABS: <PLATELET ESTIMATE> DECREASED; ANISOCYTOSIS 1+; LARGE PLATELETS 1+
[2017-09-18 06:35] VITALS: BP 106/68
[2017-09-18] MEDS: INSULIN LISPRO 100 UNITS/ML, PEN SQ-INSULIN SCH ×4 (07:39→21:00)
[2017-09-18] MEDS: SENNA/DOCUSATE TABLET PO SCH (07:39)
[2017-09-18] MEDS: PANTOPRAZOLE 40 MG IV IV SCH (07:40)
[2017-09-18] MEDS: SODIUM CHLORIDE FLUSH 10ML SYR IVF SCH ×2 (07:42→21:01)
[2017-09-18] MEDS: INSULIN GLARGINE 100 UNITS/ML, PEN SQ-INSULIN SCH (09:04)
[2017-09-18] MEDS: DOXYCYCLINE 100 MG in DEXTROSE 5% 250 ML IV SCH ×2 (09:05→21:08)
[2017-09-18] MEDS: CEFTRIAXONE PMX 2GM/50ML 50 ML IV SCH (12:28)
[2017-09-18 13:45] VITALS: BP 104/65
[2017-09-18] MEDS: ONDANSETRON ODT 4 MG PO PRN (16:54)
[2017-09-18 19:19] VITALS: BP 128/77
[2017-09-18 20:44] VITALS: BP 105/70
[2017-09-18] MEDS: MAALOX/DIPHEN/LIDO 90 ML PO PRN (23:16)
[2017-09-19] VITALS (7 sets, daily range): BP systolic 96–126; BP diastolic 55–77
[2017-09-19] MEDS: METOPROLOL TARTRATE 50 MG TABLET PO SCH ×4 (02:00→21:17)
[2017-09-19 05:52] LABS: CHLORIDE 99 mmol/L (98-107)
[2017-09-19 05:53] LABS: MEAN CORPUSCULAR HEMOGLOBIN 26.5 pg (27.5-34.5); MEAN CORPUSCULAR HGB CONC 33.2 g/dL (33.2-36.2); MEAN CORPUSCULAR VOLUME 79.9 fL (81-97); MEAN PLATELET VOLUME 12.8 fL (7.4-10.4); RED BLOOD COUNT 3.63 x10^6/uL (4.38-5.82); RED CELL DISTRIBUTION WIDTH 20.6 % (9.4-14.8)
[2017-09-19 06:17] LABS: MD YES
[2017-09-19 06:19] LABS: ANISOCYTOSIS 1+; BAND#(MANUAL) 0.13 x10^3/uL; BANDS%(MANUAL) 2 % (0-7); LYMPH#(MANUAL) 0.19 x10^3/uL (1-3.4); LYMPHS% (MANUAL) 3 % (22-44); MONOS#(MANUAL) 0.13 x10^3/uL (0.3-2.7); MONOS% (MANUAL) 2 % (2-9); SEG#(MANUAL) 5.95 x10^3/uL (1.8-6.8); SEGS% (MANUAL) 93 % (42-75)
[2017-09-19 06:20] LABS: <PLATELET ESTIMATE> DECREASED
[2017-09-19 06:21] LABS: LARGE PLATELETS 1+
[2017-09-19 06:23] LABS: PLATELET COUNT 37 x10^3/uL (130-400)
[2017-09-19 06:56] LABS: ABSOLUTE RETICS # 0.027 x10^6/uL (0.5-1.5); RETICULOCYTE COUNT % 0.72 % (0.5-1.5)
[2017-09-19 07:17] LABS: ALANINE AMINOTRANSFERASE 66 U/L (12-78); ALBUMIN 1.5 g/dL (3.4-5.0); ALKALINE PHOSPHATASE 128 U/L (45-117); ANION GAP 12 mmol/L (5-15); BILIRUBIN,TOTAL 0.5 mg/dL (0.2-1.0); CALCIUM 7.7 mg/dL (8.5-10.1); CREATININE 0.95 mg/dL (0.7-1.3); TOTAL PROTEIN 5.5 g/dL (6.4-8.2)
[2017-09-19] MEDS: INSULIN LISPRO 100 UNITS/ML, PEN SQ-INSULIN SCH ×4 (08:31→21:17)
[2017-09-19] MEDS: INSULIN GLARGINE 100 UNITS/ML, PEN SQ-INSULIN SCH (08:32)
[2017-09-19] MEDS: SODIUM CHLORIDE FLUSH 10ML SYR IVF SCH ×2 (08:49→21:17)
[2017-09-19] MEDS: PANTOPRAZOLE 40 MG IV IV SCH (08:49)
[2017-09-19] MEDS: SENNA/DOCUSATE TABLET PO SCH (08:50)
[2017-09-19] MEDS ORDERED: POTASSIUM CHLORIDE 10% 40 MEQ/30 ML UDC PO ONE ×2 (09:00→14:30)
[2017-09-19] MEDS ORDERED: POTASSIUM CHLORIDE 20 MEQ PACKET PO ONE (09:00)
[2017-09-19] MEDS: MAALOX/DIPHEN/LIDO 90 ML PO PRN (09:01)
[2017-09-19] MEDS: DOXYCYCLINE 100 MG in DEXTROSE 5% 250 ML IV SCH ×2 (09:01→21:17)
[2017-09-19] MEDS: ONDANSETRON ODT 4 MG PO PRN (10:22)
[2017-09-19] MEDS: CEFTRIAXONE PMX 2GM/50ML 50 ML IV SCH (12:41)
[2017-09-19] MEDS ORDERED: FENTANYL PF 100 MCG/2ML ONE ×2 (14:34→14:35)
[2017-09-19] MEDS ORDERED: MIDAZOLAM 1 MG/ML, 5ML ONE (14:35)
[2017-09-19] MEDS ORDERED: NALOXONE 1 MG/ML, 2ML ONE (14:35)
[2017-09-19] MEDS ORDERED: FLUMAZENIL 0.1 MG/1 ML, 5ML ONE (14:35)
[2017-09-19] MEDS: OXYcodone IR 5MG TABLET PO PRN (22:47)
[2017-09-20] VITALS (9 sets, daily range): BP systolic 96–116; BP diastolic 59–72
[2017-09-20] MEDS: METOPROLOL TARTRATE 50 MG TABLET PO SCH ×4 (02:35→18:17)
[2017-09-20] MEDS: ONDANSETRON ODT 4 MG PO PRN (05:59)
[2017-09-20] MEDS: SENNA/DOCUSATE TABLET PO SCH (07:14)
[2017-09-20] MEDS ORDERED: CATHFLO-ALTEPLASE 2 MG/2 ML CATHFLUSH ONE (07:30)
[2017-09-20] MEDS: INSULIN LISPRO 100 UNITS/ML, PEN SQ-INSULIN SCH ×4 (08:16→21:00)
[2017-09-20] MEDS: INSULIN GLARGINE 100 UNITS/ML, PEN SQ-INSULIN SCH (08:17)
[2017-09-20] MEDS: PANTOPRAZOLE 40 MG IV IV SCH (08:18)
[2017-09-20] MEDS ORDERED: DIGOXIN 0.25 MG/ML, 2ML IVPush ONE ×2 (09:00→15:00)
[2017-09-20] MEDS ORDERED: BUTALB/APAP/CAFFEINE 50MG/325MG/40MG PO PRN (09:00)
[2017-09-20] MEDS: DOXYCYCLINE 100 MG in DEXTROSE 5% 250 ML IV SCH ×2 (10:51→22:16)
[2017-09-20] MEDS: SODIUM CHLORIDE FLUSH 10ML SYR IVF SCH ×2 (10:51→22:17)
[2017-09-20 10:59] LABS: ANION GAP 10 mmol/L (5-15); CALCIUM 7.7 mg/dL (8.5-10.1); CHLORIDE 102 mmol/L (98-107); CREATININE 1.08 mg/dL (0.7-1.3)
[2017-09-20 11:00] LABS: MD YES; MEAN CORPUSCULAR HEMOGLOBIN 25.7 pg (27.5-34.5); MEAN CORPUSCULAR HGB CONC 32.2 g/dL (33.2-36.2); MEAN CORPUSCULAR VOLUME 79.9 fL (81-97); MEAN PLATELET VOLUME 12.7 fL (7.4-10.4); PLATELET COUNT 55 x10^3/uL (130-400); RED BLOOD COUNT 3.41 x10^6/uL (4.38-5.82); RED CELL DISTRIBUTION WIDTH 19.9 % (9.4-14.8)
[2017-09-20 11:02] LABS: BAND#(MANUAL) 0.62 x10^3/uL; BANDS%(MANUAL) 8 % (0-7); LYMPH#(MANUAL) 0.39 x10^3/uL (1-3.4); LYMPHS% (MANUAL) 5 % (22-44); MONOS#(MANUAL) 0.31 x10^3/uL (0.3-2.7); MONOS% (MANUAL) 4 % (2-9); SEG#(MANUAL) 6.47 x10^3/uL (1.8-6.8); SEGS% (MANUAL) 83 % (42-75)
[2017-09-20 11:03] LABS: ANISOCYTOSIS 1+; HYPOCHROMIA 1+; MICROCYTOSIS 1+
[2017-09-20 11:04] LABS: <PLATELET ESTIMATE> DECREASED; LARGE PLATELETS 1+; TOXIC GRAN 2+
[2017-09-20] MEDS ORDERED: OXYcodone IR 5MG TABLET PO PRN (12:00)
[2017-09-20] MEDS: CEFTRIAXONE PMX 2GM/50ML 50 ML IV SCH (12:20)
[2017-09-20] MEDS ORDERED: MAGNESIUM SULFATE PMX 2GM/50ML 50 ML IV ONE (12:30)
[2017-09-20 16:42] LABS: OCCULT BLOOD POSITIVE (NEGATIVE)
[2017-09-21 01:25] VITALS: BP 104/69
[2017-09-21] MEDS: METOPROLOL TARTRATE 50 MG TABLET PO SCH ×4 (01:28→18:08)
[2017-09-21] MEDS: ACETAMINOPHEN 325 MG TABLET PO PRN ×3 (01:28→21:58)
[2017-09-21 06:45] LABS: MEAN CORPUSCULAR HEMOGLOBIN 26.6 pg (27.5-34.5); MEAN CORPUSCULAR HGB CONC 33.7 g/dL (33.2-36.2); MEAN CORPUSCULAR VOLUME 78.9 fL (81-97); MEAN PLATELET VOLUME 11.8 fL (7.4-10.4); RED BLOOD COUNT 3.14 x10^6/uL (4.38-5.82); RED CELL DISTRIBUTION WIDTH 20.7 % (9.4-14.8)
[2017-09-21 06:47] LABS: PLATELET COUNT 48 x10^3/uL (130-400)
[2017-09-21 06:52] LABS: ALBUMIN 1.2 g/dL (3.4-5.0); ANION GAP 9 mmol/L (5-15); CALCIUM 8.2 mg/dL (8.5-10.1); CHLORIDE 99 mmol/L (98-107); CREATININE 0.98 mg/dL (0.7-1.3); TRIGLYCERIDES 138 mg/dL (50-200)
[2017-09-21 06:55] VITALS: BP 130/72
[2017-09-21 07:07] LABS: MD YES
[2017-09-21 07:09] LABS: LYMPHS% (MANUAL) 4 % (22-44); MONOS#(MANUAL) 0.05 x10^3/uL (0.3-2.7); MONOS% (MANUAL) 1 % (2-9); NRBC % (MANUAL) 1 % (0-1)
[2017-09-21 07:10] LABS: ANISOCYTOSIS 1+; BAND#(MANUAL) 0.54 x10^3/uL; BANDS%(MANUAL) 11 % (0-7); MICROCYTOSIS 1+; SEG#(MANUAL) 4.12 x10^3/uL (1.8-6.8); SEGS% (MANUAL) 84 % (42-75)
[2017-09-21 07:11] LABS: <PLATELET ESTIMATE> DECREASED; LARGE PLATELETS 1+; TOXIC GRAN 2+
[2017-09-21] MEDS: SENNA/DOCUSATE TABLET PO SCH (08:23)
[2017-09-21] MEDS: INSULIN LISPRO 100 UNITS/ML, PEN SQ-INSULIN SCH ×4 (08:35→21:02)
[2017-09-21] MEDS: IRON SUCROSE COMPLEX 100MG/5ML IV SCH (08:36)
[2017-09-21] MEDS: DIGOXIN 0.125 MG TABLET NG SCH (08:36)
[2017-09-21] MEDS: PANTOPRAZOLE 40 MG IV IV SCH (08:36)
[2017-09-21] MEDS: SODIUM CHLORIDE FLUSH 10ML SYR IVF SCH ×2 (08:37→20:59)
[2017-09-21] MEDS: INSULIN GLARGINE 100 UNITS/ML, PEN SQ-INSULIN SCH ×2 (09:00→11:41)
[2017-09-21] MEDS: DOXYCYCLINE 100 MG in DEXTROSE 5% 250 ML IV SCH ×2 (10:24→20:59)
[2017-09-21] MEDS ORDERED: CEFTRIAXONE PMX 2GM/50ML 50 ML IV SCH (12:30)
[2017-09-21 13:00] VITALS: BP 130/72
[2017-09-21 18:09] VITALS: BP 110/74
[2017-09-21 19:22] VITALS: BP 112/69
[2017-09-21] MEDS ORDERED: MAGNESIUM SULFATE PMX 2GM/50ML 50 ML IV ONE (21:30)
[2017-09-21] MEDS ORDERED: POTASSIUM PHOSPHATE 44 MEQ in SODIUM CHLORIDE 0.9% 500 ML IV ONE (21:30)
[2017-09-22 01:47] VITALS: BP 107/71
[2017-09-22] MEDS: METOPROLOL TARTRATE 50 MG TABLET PO SCH ×4 (01:49→22:01)
[2017-09-22 02:01] VITALS: BP 109/66
[2017-09-22 04:08] LABS: MEAN CORPUSCULAR HEMOGLOBIN 26.1 pg (27.5-34.5); MEAN CORPUSCULAR HGB CONC 32.9 g/dL (33.2-36.2); MEAN CORPUSCULAR VOLUME 79.3 fL (81-97); RED BLOOD COUNT 3.04 x10^6/uL (4.38-5.82); RED CELL DISTRIBUTION WIDTH 20.1 % (9.4-14.8)
[2017-09-22 04:13] LABS: ANION GAP 10 mmol/L (5-15); CALCIUM 8.1 mg/dL (8.5-10.1); CHLORIDE 103 mmol/L (98-107)
[2017-09-22 04:18] LABS: BASOPHILS # (AUTO) 0.01 x10^3/uL (0-0.1); BASOPHILS % (AUTO) 0 % (0-1); EOSINOPHILS # (AUTO) 0.03 x10^3/uL (0-0.4); EOSINOPHILS % (AUTO) 1 % (1-7); LYMPHOCYTES # (AUTO) 0.28 x10^3/uL (1-3.4); LYMPHOCYTES % (AUTO) 8 % (22-44); MEAN PLATELET VOLUME 12.5 fL (7.4-10.4); MONOCYTES % (AUTO) 3 % (2-9); NEUTROPHILS # (AUTO) 2.97 x10^3/uL (1.8-6.8); NEUTROPHILS % (AUTO) 88 % (42-75); PLATELET COUNT 52 x10^3/uL (130-400)
[2017-09-22 04:19] LABS: MD SCAN
[2017-09-22] MEDS: INSULIN LISPRO 100 UNITS/ML, PEN SQ-INSULIN SCH ×4 (07:00→22:09)
[2017-09-22 07:08] VITALS: BP 117/71
[2017-09-22] MEDS: PANTOPRAZOLE 40 MG IV IV SCH (08:39)
[2017-09-22] MEDS: IRON SUCROSE COMPLEX 100MG/5ML IV SCH (08:39)
[2017-09-22] MEDS: DIGOXIN 0.125 MG TABLET NG SCH (08:39)
[2017-09-22] MEDS: SODIUM CHLORIDE FLUSH 10ML SYR IVF SCH ×2 (08:40→22:09)
[2017-09-22] MEDS: SENNA/DOCUSATE TABLET PO SCH (08:40)
[2017-09-22] MEDS: INSULIN GLARGINE 100 UNITS/ML, PEN SQ-INSULIN SCH (08:40)
[2017-09-22 18:38] VITALS: BP 126/74
[2017-09-22 21:21] LABS: OCCULT BLOOD NEGATIVE (NEGATIVE)
[2017-09-23 01:49] VITALS: BP 122/81
[2017-09-23 04:13] VITALS: BP 126/77
[2017-09-23] MEDS: METOPROLOL TARTRATE 50 MG TABLET PO SCH ×3 (04:15→16:58)
[2017-09-23 04:47] LABS: MEAN CORPUSCULAR HEMOGLOBIN 26.2 pg (27.5-34.5); MEAN CORPUSCULAR HGB CONC 33.3 g/dL (33.2-36.2); MEAN CORPUSCULAR VOLUME 78.8 fL (81-97); RED CELL DISTRIBUTION WIDTH 20.3 % (9.4-14.8)
[2017-09-23 04:53] LABS: ALANINE AMINOTRANSFERASE 85 U/L (12-78); ALBUMIN 1.4 g/dL (3.4-5.0); ANION GAP 10 mmol/L (5-15); CHLORIDE 104 mmol/L (98-107); CREATININE 0.76 mg/dL (0.7-1.3)
[2017-09-23 04:55] LABS: ALKALINE PHOSPHATASE 127 U/L (45-117); BILIRUBIN,TOTAL 0.6 mg/dL (0.2-1.0); TOTAL PROTEIN 5.3 g/dL (6.4-8.2)
[2017-09-23 05:29] LABS: BASOPHILS # (AUTO) 0.01 x10^3/uL (0-0.1); BASOPHILS % (AUTO) 0 % (0-1); EOSINOPHILS # (AUTO) 0.03 x10^3/uL (0-0.4); EOSINOPHILS % (AUTO) 1 % (1-7); LYMPHOCYTES # (AUTO) 0.31 x10^3/uL (1-3.4); LYMPHOCYTES % (AUTO) 11 % (22-44); MD SCAN; MEAN PLATELET VOLUME 10.1 fL (7.4-10.4); MONOCYTES # (AUTO) 0.09 x10^3/uL (0.2-0.8); MONOCYTES % (AUTO) 3 % (2-9); NEUTROPHILS # (AUTO) 2.35 x10^3/uL (1.8-6.8); NEUTROPHILS % (AUTO) 84 % (42-75); PLATELET COUNT 58 x10^3/uL (130-400)
[2017-09-23 06:47] VITALS: BP 119/77
[2017-09-23] MEDS: INSULIN LISPRO 100 UNITS/ML, PEN SQ-INSULIN SCH ×4 (07:00→20:21)
[2017-09-23] MEDS: INSULIN GLARGINE 100 UNITS/ML, PEN SQ-INSULIN SCH (07:56)
[2017-09-23] MEDS: SENNA/DOCUSATE TABLET PO SCH (09:00)
[2017-09-23] MEDS: IRON SUCROSE COMPLEX 100MG/5ML IV SCH (09:41)
[2017-09-23] MEDS: PANTOPRAZOLE 40 MG IV IV SCH (09:41)
[2017-09-23] MEDS: SODIUM CHLORIDE FLUSH 10ML SYR IVF SCH ×2 (09:42→20:16)
[2017-09-23] MEDS: DIGOXIN 0.125 MG TABLET NG SCH (09:42)
[2017-09-23 12:56] LABS: OCCULT BLOOD NEGATIVE (NEGATIVE)
[2017-09-23 12:58] VITALS: BP 128/74
[2017-09-23] MEDS: CARVEDILOL 6.25 MG TABLET PO SCH (17:23)
[2017-09-23 19:00] VITALS: BP 110/70
[2017-09-23] MEDS: HEPARIN 5,000 UNITS/ML, 1ML SQ SCH (20:16)
[2017-09-23] MEDS: LACTOBACILLUS CHEW TABLET PO SCH (20:17)
[2017-09-23] MEDS ORDERED: APIXABAN 5 MG TABLET PO SCH (21:00)
[2017-09-23] MEDS ORDERED: SENNA/DOCUSATE TABLET PO SCH (21:00)
[2017-09-24 00:49] VITALS: BP 132/74
[2017-09-24] MEDS: HEPARIN 5,000 UNITS/ML, 1ML SQ SCH ×2 (05:33→20:03)
[2017-09-24 05:36] VITALS: BP 133/72
[2017-09-24] MEDS: CARVEDILOL 6.25 MG TABLET PO SCH ×2 (05:37→16:57)
[2017-09-24] MEDS: ALENDRONATE 10 MG TABLET PO SCH (05:37)
[2017-09-24 05:50] LABS: ANION GAP 10 mmol/L (5-15); CALCIUM 8.6 mg/dL (8.5-10.1); CHLORIDE 103 mmol/L (98-107)
[2017-09-24 05:52] LABS: MEAN CORPUSCULAR HEMOGLOBIN 26.4 pg (27.5-34.5); MEAN CORPUSCULAR HGB CONC 33.2 g/dL (33.2-36.2); MEAN CORPUSCULAR VOLUME 79.4 fL (81-97); RED BLOOD COUNT 2.87 x10^6/uL (4.38-5.82); RED CELL DISTRIBUTION WIDTH 20.6 % (9.4-14.8)
[2017-09-24 06:08] LABS: MEAN PLATELET VOLUME 10.6 fL (7.4-10.4)
[2017-09-24 06:09] LABS: PLATELET COUNT 47 x10^3/uL (130-400)
[2017-09-24 06:12] LABS: BASOPHILS # (AUTO) 0.02 x10^3/uL (0-0.1); BASOPHILS % (AUTO) 1 % (0-1); EOSINOPHILS # (AUTO) 0.04 x10^3/uL (0-0.4); EOSINOPHILS % (AUTO) 1 % (1-7); LYMPHOCYTES # (AUTO) 0.27 x10^3/uL (1-3.4); LYMPHOCYTES % (AUTO) 9 % (22-44); MD SCAN; MONOCYTES # (AUTO) 0.13 x10^3/uL (0.2-0.8); MONOCYTES % (AUTO) 4 % (2-9); NEUTROPHILS # (AUTO) 2.53 x10^3/uL (1.8-6.8); NEUTROPHILS % (AUTO) 85 % (42-75)
[2017-09-24 06:15] LABS: CREATININE 0.79 mg/dL (0.7-1.3); TRIGLYCERIDES 154 mg/dL (50-200)
[2017-09-24] MEDS: INSULIN LISPRO 100 UNITS/ML, PEN SQ-INSULIN SCH ×4 (07:00→20:04)
[2017-09-24 08:42] VITALS: BP 122/72
[2017-09-24] MEDS: LACTOBACILLUS CHEW TABLET PO SCH ×3 (09:57→20:03)
[2017-09-24] MEDS: TAMSULOSIN 0.4 MG CAP.ER.24H PO SCH (09:57)
[2017-09-24] MEDS: IRON SUCROSE COMPLEX 100MG/5ML IV SCH (09:57)
[2017-09-24] MEDS: DIGOXIN 0.125 MG TABLET NG SCH (09:57)
[2017-09-24] MEDS: SODIUM CHLORIDE FLUSH 10ML SYR IVF SCH ×2 (09:58→20:03)
[2017-09-24 14:29] VITALS: BP 119/71
[2017-09-24 19:03] LABS: OCCULT BLOOD NEGATIVE (NEGATIVE)
[2017-09-24 19:20] LABS: CLOSTRIDIUM DIFFICILE ANTIGEN NEGATIVE; CLOSTRIDIUM DIFFICILE TOXIN NEGATIVE (Negative)
[2017-09-24 21:03] VITALS: BP 132/74
[2017-09-24] MEDS: ACETAMINOPHEN 325 MG TABLET PO PRN (23:07)
[2017-09-25 03:38] VITALS: BP 118/70
[2017-09-25 05:41] VITALS: BP 136/80
[2017-09-25 05:44] LABS: MEAN CORPUSCULAR HEMOGLOBIN 26.4 pg (27.5-34.5); MEAN CORPUSCULAR HGB CONC 33.2 g/dL (33.2-36.2); MEAN CORPUSCULAR VOLUME 79.5 fL (81-97); RED CELL DISTRIBUTION WIDTH 19.9 % (9.4-14.8)
[2017-09-25] MEDS: CARVEDILOL 6.25 MG TABLET PO SCH (05:44)
[2017-09-25] MEDS: ALENDRONATE 10 MG TABLET PO SCH (05:44)
[2017-09-25 05:57] LABS: CHLORIDE 103 mmol/L (98-107)
[2017-09-25 06:05] LABS: ANION GAP 10 mmol/L (5-15); CALCIUM 7.9 mg/dL (8.5-10.1); CREATININE 0.71 mg/dL (0.7-1.3)
[2017-09-25 06:21] LABS: BASOPHILS # (AUTO) 0.01 x10^3/uL (0-0.1); BASOPHILS % (AUTO) 1 % (0-1); EOSINOPHILS # (AUTO) 0.03 x10^3/uL (0-0.4); EOSINOPHILS % (AUTO) 1 % (1-7); LYMPHOCYTES # (AUTO) 0.27 x10^3/uL (1-3.4); LYMPHOCYTES % (AUTO) 11 % (22-44); MD SCAN; MEAN PLATELET VOLUME 9.1 fL (7.4-10.4); MONOCYTES % (AUTO) 4 % (2-9); NEUTROPHILS # (AUTO) 2.08 x10^3/uL (1.8-6.8); NEUTROPHILS % (AUTO) 83 % (42-75)
[2017-09-25 06:38] LABS: PLATELET COUNT 44 x10^3/uL (130-400)
[2017-09-25] MEDS: INSULIN LISPRO 100 UNITS/ML, PEN SQ-INSULIN SCH ×2 (07:00→11:00)
[2017-09-25 07:29] VITALS: BP 114/67
[2017-09-25] MEDS ORDERED: OMEPRAZOLE 20 MG CAPSULE.DR PO SCH (07:30)
[2017-09-25] MEDS: HEPARIN 5,000 UNITS/ML, 1ML SQ SCH (08:00)
[2017-09-25] MEDS: TAMSULOSIN 0.4 MG CAP.ER.24H PO SCH (08:04)
[2017-09-25] MEDS: LACTOBACILLUS CHEW TABLET PO SCH (08:04)
[2017-09-25] MEDS: DIGOXIN 0.125 MG TABLET NG SCH (08:04)
[2017-09-25] MEDS: IRON SUCROSE COMPLEX 100MG/5ML IV SCH (08:04)
[2017-09-25] MEDS: SODIUM CHLORIDE FLUSH 10ML SYR IVF SCH (08:05)
[2017-09-25] MEDS: ACETAMINOPHEN 325 MG TABLET PO PRN (08:05)
[2017-09-25] MEDS ORDERED: ALEN10TA6 PO (12:15)
[2017-09-25] MEDS ORDERED: CARV6.2512 PO (12:15)
[2017-09-25] MEDS ORDERED: SENN8.8S4 NG (12:15)
[2017-09-25] MEDS ORDERED: ACET325T14 PO (12:15)
[2017-09-25] MEDS ORDERED: ACID1TAB7 PO (12:15)
[2017-09-25] MEDS ORDERED: TAMS-11 PO (12:15)
[2017-09-25 13:25] VITALS: BP 125/70
== END 2017-09-25 15:11 | DRG 871 ==
LOC: ED 05:25 → EDIP 07:18 → CCU 08:22 → 5SO 09-15 16:05
PROVIDERS: ADMIT Internal Medicine; ATTEND Hospitalist
PROC: 0T9B70Z Drainage of Bladder with Drainage Device, Via Natural or Artificial Opening (ICD-10-PCS; principal; 2017-09-12)
PROC: 0T9B30Z Drainage of Bladder with Drainage Device, Percutaneous Approach (ICD-10-PCS; 2017-09-12)
PROC: 02HV33Z Insertion of Infusion Device into Superior Vena Cava, Percutaneous Approach (ICD-10-PCS; 2017-09-12)
PROC: B548ZZA Ultrasonography of Superior Vena Cava, Guidance (ICD-10-PCS; 2017-09-12)
PROC: 5A1935Z Respiratory Ventilation, Less than 24 Consecutive Hours (ICD-10-PCS; 2017-09-12)
PROC: 0BH17EZ Insertion of Endotracheal Airway into Trachea, Via Natural or Artificial Opening (ICD-10-PCS; 2017-09-12)
PROC: 07DR3ZX Extraction of Iliac Bone Marrow, Percutaneous Approach, Diagnostic (ICD-10-PCS; 2017-09-19)
DX: A41.9 Sepsis, unspecified organism (principal); J18.9 Pneumonia, unspecified organism; E11.10 Type 2 diabetes mellitus with ketoacidosis without coma; E43 Unspecified severe protein-calorie malnutrition; K85.90 Acute pancreatitis without necrosis or infection, unspecified; J96.01 Acute respiratory failure with hypoxia; N17.0 Acute kidney failure with tubular necrosis; E87.1 Hypo-osmolality and hyponatremia; C79.51 Secondary malignant neoplasm of bone; D61.818 Other pancytopenia; F11.20 Opioid dependence, uncomplicated; J44.0 Chronic obstructive pulmonary disease with (acute) lower respiratory infection; Z99.11 Dependence on respirator [ventilator] status; Z68.25 Body mass index [BMI] 25.0-25.9, adult; D50.9 Iron deficiency anemia, unspecified; D63.8 Anemia in other chronic diseases classified elsewhere; E05.90 Thyrotoxicosis, unspecified without thyrotoxic crisis or storm; E11.649 Type 2 diabetes mellitus with hypoglycemia without coma; E78.5 Hyperlipidemia, unspecified; E86.0 Dehydration; E87.5 Hyperkalemia; F32.9 Major depressive disorder, single episode, unspecified; G89.29 Other chronic pain; I10 Essential (primary) hypertension; I48.91 Unspecified atrial fibrillation; K12.30 Oral mucositis (ulcerative), unspecified; K21.9 Gastro-esophageal reflux disease without esophagitis; K59.00 Constipation, unspecified; N13.9 Obstructive and reflux uropathy, unspecified; R62.7 Adult failure to thrive; T38.0X5A Adverse effect of glucocorticoids and synthetic analogues, initial encounter; Y84.2 Radiological procedure and radiotherapy as the cause of abnormal reaction of the patient, or of later complication, without mention of misadventure at the time of the procedure; Z79.01 Long term (current) use of anticoagulants; Z79.52 Long term (current) use of systemic steroids; Z79.899 Other long term (current) drug therapy; Z80.0 Family history of malignant neoplasm of digestive organs; Z85.46 Personal history of malignant neoplasm of prostate; Z82.49 Family history of ischemic heart disease and other diseases of the circulatory system; Z86.718 Personal history of other venous thrombosis and embolism; Z87.891 Personal history of nicotine dependence; Z90.79 Acquired absence of other genital organ(s); Z92.3 Personal history of irradiation; Z68.27 Body mass index [BMI] 27.0-27.9, adult
CPT/HCPCS: 36415; 36569; 36600; 38222; 51102; 70543; 71045; 74230; 76705; 76937; 76942; 77001; 77012; 80048; 80053; 80162; 81001; 81003; 82010; 82040; 82272; 82800; 82803; 82947; 82962; 83036; 83540; 83550; 83605; 83615; 83690; 83735; 84100; 84132; 84439; 84443; 84478; 84481; 85025; 85045; 85060; 85097; 85384; 85610; 85730; 87040; 87070; 87077; 87081; 87186; 87205; 87324; 88184; 88185; 88237; 88264; 88280; 88305; 88311; 88313; 88342; 88360; 93005; 94002; 94003; 94150; 94640; 99156; 99157; A9585; G0103; J0295; J0696; J1100; J1170; J1644; J1756; J2020; J2250; J2704; J2997; J3010; J3360; J3490; J7060; J7620; Q0162; C1729; C1751; C9113; G0461; J1160; J1815; J2060; J2310; J3475; J7030; J7040; J7050